=== PATIENT | female | born 1975 | race Asian ===

== ENCOUNTER 2024-12-03 04:09 | Day surgery (SDC) | payer OTHER ==
[2024-12-01 12:29] VITALS: BMI 18.3
[2024-12-03] MEDS ORDERED: ONDANSETRON 4 MG/2 ML VIAL IVPUSH PRN ×2 (06:23→12:27)
[2024-12-03] MEDS ORDERED: oxyCODONE HCL 5 MG TABLET PO PRN ×2 (06:23)
[2024-12-03] MEDS ORDERED: MIDAZOLAM HCL 2 MG/2 ML SINGLE DOSE VIAL ONE (07:33)
[2024-12-03] MEDS ORDERED: PROPOFOL 20 ML ONE (07:33)
[2024-12-03] MEDS ORDERED: ROCURONIUM BROMIDE 50 MG/5 ML SYRINGE ONE ×2 (07:33→09:26)
[2024-12-03] MEDS ORDERED: ONDANSETRON 4 MG/2 ML VIAL ONE ×2 (08:25→16:28)
[2024-12-03] MEDS ORDERED: KETOROLAC TROMETHAMINE 30 MG/1 ML VIAL ONE (08:25)
[2024-12-03] MEDS: ceFAZolin SODIUM 1 GM VIAL IVPB ONE (08:25)
[2024-12-03] MEDS ORDERED: DEXAMETHASONE SOD PHOSPHATE 4 MG/1 ML VIAL ONE (08:25)
[2024-12-03] MEDS ORDERED: ceFAZolin SODIUM 1 GM VIAL ONE (08:25)
[2024-12-03] MEDS ORDERED: ACETAMINOPHEN INJECTION 100 ML ONE (09:27)
[2024-12-03] MEDS ORDERED: SUGAMMADEX SODIUM 200 MG/2 ML VIAL ONE (10:37)
[2024-12-03] MEDS ORDERED: LIDOCAINE HCL/PF 2% SDV 5ML VIAL ONE (10:38)
[2024-12-03] MEDS ORDERED: HYDROmorphone HCl 2 MG/ML VIAL ONE (11:33)
[2024-12-03] MEDS ORDERED: DOCUSATE SODIUM 100 MG CAPSULE (FP) PO PRN (12:27)
[2024-12-03] MEDS ORDERED: BISACODYL 5 MG TABLET.DR (FP) PO PRN (12:27)
[2024-12-03] MEDS ORDERED: ARTIFICIAL TEARS OPHTHALMIC DROPS OU PRN (13:41)
[2024-12-03] MEDS: BACITRACIN/POLYMYXIN OPH OINT 3.5 GM TUBE OD ONE (14:35)
[2024-12-03] MEDS: CEFAZOLIN 1 GM/D5W 1 GM/50 ML BAG IVPB SCH (17:45)
[2024-12-03] MEDS: LACTATED RINGERS SOLUTION 1,000 ML IV SCH (18:02)
[2024-12-03] MEDS: BACITRACIN/POLYMYXIN OPH OINT 3.5 GM TUBE OD SCH (18:03)
[2024-12-03] MEDS: ACETAMINOPHEN 1000 MG/100 ML BAG IVPB SCH (18:04)
[2024-12-03] MEDS: KETOROLAC TROMETHAMINE 30 MG/1 ML VIAL IVPUSH SCH (20:14)
[2024-12-03] MEDS: oxyCODONE HCL 5 MG TABLET PO PRN (23:29)
[2024-12-04] MEDS: SIMETHICONE 80 MG TAB.CHEW (FP) PO PRN (02:34)
[2024-12-04 03:14] VITALS: RESP 18
[2024-12-04 09:02] LABS: BASO % 0.4 % (0-2.0); HEMATOCRIT 31.6 % (32.4-45.2); HEMOGLOBIN 10.1 GM/dL (10.7-15.3); LYMPH % 15.6 % (8-40); MCH 27.7 pg (25.7-33.7); MCHC 31.8 g/dl (32.0-36.0); MEAN PLT VOLUME 8.2 fl (7.5-11.1); MONO % 7.6 % (3.8-10.2); NEUT % 76.4 % (42.8-82.8); PLATELET COUNT 228 10^3/uL (134-434); RBC 3.64 M/mm3 (3.60-5.2); RDW 15.4 % (11.6-15.6); WHITE BLOOD COUNT 11.1 K/mm3 (4.0-10.0)
[2024-12-04 09:12] LABS: POTASSIUM 4.1 mmol/L (3.5-5.1)
[2024-12-04 09:15] LABS: BLOOD UREA NITROGEN 16.4 mg/dL (7-18); CALCIUM 7.9 mg/dL (8.5-10.1)
[2024-12-04 09:18] LABS: CREATININE 1.6 mg/dL (0.55-1.3)
[2024-12-04] MEDS ORDERED: ACETAMINOPHEN 325 MG TABLET (FP) PO PRN (10:00)
[2024-12-04] MEDS: ACETAMINOPHEN 500 MG TABLET (FP) PO PRN (10:00)
[2024-12-04] MEDS: BISACODYL 10 MG SUPP.RECT RC PRN (16:57)
[2024-12-04 17:30] LABS: BLOOD UREA NITROGEN 18.9 mg/dL (7-18); CALCIUM 8.4 mg/dL (8.5-10.1)
[2024-12-04 17:34] LABS: CREATININE 1.8 mg/dL (0.55-1.3)
[2024-12-04 20:38] VITALS: BP 113/48; PULSE 85; TEMP 98.8
== END 2024-12-04 21:30 | disposition home or self-care (01) ==
LOC: JASU-SURG 04:09 → JASUSAT 04:09 → J5S 17:45 → JASUSAT 12-04 21:30
PROVIDERS: ATTEND Specialist
PROC: 0DNU4ZZ Release Omentum, Percutaneous Endoscopic Approach (ICD-10-PCS; 2024-12-03)
PROC: 0UT74ZZ Resection of Bilateral Fallopian Tubes, Percutaneous Endoscopic Approach (ICD-10-PCS; 2024-12-03)
PROC: 0UT94ZZ Resection of Uterus, Percutaneous Endoscopic Approach (ICD-10-PCS; principal; 2024-12-03 08:00)
PROC: 0DNW4ZZ Release Peritoneum, Percutaneous Endoscopic Approach (ICD-10-PCS; 2024-12-03 08:00)
DX: D25.9 Leiomyoma of uterus, unspecified (principal); N80.00 Endometriosis of the uterus, unspecified; N73.6 Female pelvic peritoneal adhesions (postinfective)
CPT/HCPCS: 58573; S2900; 36415; 80048; 81025; 85025; 86850; 86900; 86901; 88307-TC; 94760; J0131

== ENCOUNTER 2024-12-06 09:43 | Inpatient (IN) | payer OTHER ==
[2024-12-06] MEDS ORDERED: LIDOCAINE HCL 2% JELLY 6 ML TP ONE (10:00)
[2024-12-06] MEDS: SODIUM CHLORIDE 0.9% 500 ML INFUS.BAG IV ONE (10:31)
[2024-12-06] MEDS: IOHEXOL (OMNIPAQUE IV) 350 MG/ML - 100 ML BOTTLE PO ONE (10:33)
[2024-12-06 10:41] LABS: BASO % 0.1 % (0-2.0); HEMATOCRIT 35.5 % (32.4-45.2); HEMOGLOBIN 11.8 GM/dL (10.7-15.3); LYMPH % 3.9 % (8-40); MCH 28.4 pg (25.7-33.7); MCHC 33.2 g/dl (32.0-36.0); MEAN CELL VOLUME 85.7 fl (80-96); MEAN PLT VOLUME 7.8 fl (7.5-11.1); MONO % 7.7 % (3.8-10.2); NEUT % 88.3 % (42.8-82.8); PLATELET COUNT 252 10^3/uL (134-434); RBC 4.14 M/mm3 (3.60-5.2); RDW 15.7 % (11.6-15.6)
[2024-12-06 10:42] LABS: INR 1.05 (0.83-1.09); PROTHROMBIN TIME (PATIENT) 11.5 SEC (9.7-13.0)
[2024-12-06 10:45] LABS: ACTIVATED PTT 29.7 SECONDS (25.2-36.5)
[2024-12-06 10:55] LABS: POTASSIUM 4.9 mmol/L (3.5-5.1)
[2024-12-06 10:57] LABS: CALCIUM 8.8 mg/dL (8.5-10.1)
[2024-12-06 10:58] LABS: BLOOD UREA NITROGEN 33.7 mg/dL (7-18); MAGNESIUM 2.7 mg/dL (1.8-2.4)
[2024-12-06 11:01] LABS: CREATININE 4.1 mg/dL (0.55-1.3)
[2024-12-06 11:02] LABS: BILIRUBIN,TOTAL 0.7 mg/dL (0.2-1); TOT PROT 6.6 g/dl (6.4-8.2)
[2024-12-06] MEDS: LIDOCAINE HCL 2% JELLY 6 ML TP ONE (12:41)
[2024-12-06] MEDS ORDERED: VANCOMYCIN 1 GM PREMIX (F) 1 GM/200 ML BAG ONE (12:52)
[2024-12-06] MEDS ORDERED: PIPERACILLIN/TAZOB 3.375 GM 3.375 GM/50 ML BAG IVPB ONE (12:52)
[2024-12-06 13:13] LABS: EPI CELLS >36 /uL (0-25.1); HYALINE CASTS 1 /uL (0-3.1); URINE APPEARANCE CLOUDY; URINE BACTERIA 9 /uL (0-1359); URINE BILIRUBIN NEGATIVE (NEGATIVE); URINE COLOR YELLOW; URINE GLUCOSE (UA) NEGATIVE (NEGATIVE); URINE KETONE TRACE (NEGATIVE); URINE LEUK ESTERASE 1+ (NEGATIVE); URINE NITRITE NEGATIVE (NEGATIVE); URINE PROTEIN NEGATIVE (NEGATIVE); URINE RBC 90 /uL (0-23.9); URINE UROBILINOGEN 0.2 mg/dL (0.2-1.0)
[2024-12-06] MEDS: PIPERACILLIN/TAZOB 3.375 GM 3.375 GM in DEXTROSE 5%-WATER - 50 ML IVPB ONE (13:16)
[2024-12-06] MEDS: VANCOMYCIN 1,000 MG in DEXTROSE 5%-WATER - 250 ML IVPB ONE (13:47)
[2024-12-06] MEDS: LACTATED RINGERS SOLUTION 1,000 ML/1,000 ML INFUS.BAG IV SCH (15:01)
[2024-12-06 18:50] VITALS: BMI 19.2
[2024-12-06] MEDS ORDERED: PIPERACILLIN/TAZOB 4.5 GM 4.5 GM in DEXTROSE 5%-WATER 100 ML IVPB SCH (21:00)
[2024-12-06] MEDS: ACETAMINOPHEN 1000 MG/100 ML BAG IVPB PRN (21:12)
[2024-12-06] MEDS: PIPERACILLIN/TAZOB 4.5 GM 4.5 GM/100 ML BAG IVPB SCH (22:51)
[2024-12-06] MEDS: ONDANSETRON 4 MG/2 ML VIAL IVPUSH ONE (23:00)
[2024-12-07 09:38] LABS: BASO % 0.3 % (0-2.0); EOS % 0.2 % (0-4.5); HEMATOCRIT 27.7 % (32.4-45.2); LYMPH % 6.7 % (8-40); MCH 28.2 pg (25.7-33.7); MCHC 32.4 g/dl (32.0-36.0); MEAN CELL VOLUME 86.9 fl (80-96); MONO % 8.6 % (3.8-10.2); NEUT % 84.2 % (42.8-82.8); PLATELET COUNT 228 10^3/uL (134-434); RBC 3.18 M/mm3 (3.60-5.2); RDW 15.2 % (11.6-15.6)
[2024-12-07 09:55] LABS: CALCIUM 7.8 mg/dL (8.5-10.1)
[2024-12-07 09:59] LABS: CREATININE 0.4 mg/dL (0.55-1.3)
[2024-12-07 10:14] VITALS: RESP 18
[2024-12-08 11:49] LABS: BASO % 0.2 % (0-2.0); EOS % 1.1 % (0-4.5); HEMATOCRIT 36.1 % (32.4-45.2); HEMOGLOBIN 11.8 GM/dL (10.7-15.3); LYMPH % 10.9 % (8-40); MCH 28.6 pg (25.7-33.7); MCHC 32.7 g/dl (32.0-36.0); MEAN CELL VOLUME 87.4 fl (80-96); MEAN PLT VOLUME 7.8 fl (7.5-11.1); MONO % 6.1 % (3.8-10.2); NEUT % 81.7 % (42.8-82.8); PLATELET COUNT 344 10^3/uL (134-434); RBC 4.13 M/mm3 (3.60-5.2); RDW 15.2 % (11.6-15.6); WHITE BLOOD COUNT 8.4 K/mm3 (4.0-10.0)
[2024-12-08 11:50] LABS: POTASSIUM 3.9 mmol/L (3.5-5.1)
[2024-12-08 11:54] LABS: CALCIUM 8.5 mg/dL (8.5-10.1)
[2024-12-08 11:55] LABS: ALBUMIN 2.7 g/dl (3.4-5.0); BLOOD UREA NITROGEN 6.9 mg/dL (7-18)
[2024-12-08 11:58] LABS: CREATININE 0.7 mg/dL (0.55-1.3)
[2024-12-08 11:59] LABS: BILIRUBIN,TOTAL 0.7 mg/dL (0.2-1); TOT PROT 6.4 g/dl (6.4-8.2)
[2024-12-08] MEDS: ONDANSETRON 4 MG/2 ML VIAL IVPUSH PRN (13:52)
[2024-12-08] MEDS ORDERED: PIPERACILLIN/TAZOB 3.375 GM 3.375 GM in DEXTROSE 5%-WATER - 50 ML IVPB SCH ×2 (19:00→22:00)
[2024-12-08] MEDS: PIPERACILLIN/TAZOB 3.375 GM 3.375 GM in DEXTROSE 5%-WATER - 50 ML IVPB SCH (21:43)
[2024-12-08] MEDS: PIPERACILLIN/TAZOB 3.375 GM 50 ML IVPB SCH (22:21)
[2024-12-09] MEDS: PIPERACILLIN/TAZOB 4.5 GM 4.5 GM in DEXTROSE 5%-WATER 100 ML IVPB SCH (07:31)
[2024-12-09 10:36] LABS: BASO % 0.3 % (0-2.0); EOS % 1.2 % (0-4.5); HEMATOCRIT 31.2 % (32.4-45.2); HEMOGLOBIN 10.4 GM/dL (10.7-15.3); LYMPH % 12.1 % (8-40); MCH 28.6 pg (25.7-33.7); MCHC 33.4 g/dl (32.0-36.0); MEAN CELL VOLUME 85.5 fl (80-96); MEAN PLT VOLUME 7.5 fl (7.5-11.1); MONO % 5.3 % (3.8-10.2); NEUT % 81.1 % (42.8-82.8); PLATELET COUNT 333 10^3/uL (134-434); RBC 3.65 M/mm3 (3.60-5.2); RDW 14.7 % (11.6-15.6); WHITE BLOOD COUNT 8.2 K/mm3 (4.0-10.0)
[2024-12-09 11:11] LABS: PHOSPHOROUS 3.2 mg/dL (2.5-4.9)
[2024-12-09 14:24] VITALS: BP 123/76; PULSE 72; TEMP 98.6
== END 2024-12-09 16:38 | disposition home or self-care (01) | DRG 252 ==
LOC: JER 09:43 → JERBED 14:24 → J5S 17:24
PROVIDERS: ADMIT Internal Medicine; ATTEND Internal Medicine
DX: K91.89 Other postprocedural complications and disorders of digestive system (principal); N17.9 Acute kidney failure, unspecified; R18.8 Other ascites; K56.7 Ileus, unspecified; R14.0 Abdominal distension (gaseous); R33.9 Retention of urine, unspecified; R11.2 Nausea with vomiting, unspecified; Z90.710 Acquired absence of both cervix and uterus
CPT/HCPCS: 36415; 71045-TC-FY; 74176-TC; 74177-TC; 76700-TC; 80048; 80053; 81003; 83605; 83690; 83735; 84100; 85025; 85027; 85610; 85730; 86850; 86900; 86901; 87040; 93005; 93010; 97116-GP; 97161-GP; 99285-25; J0131; Q9967